=== PATIENT | female | born 1950 | race Caucasian/White ===

== ENCOUNTER 2016-10-17 12:12 | Emergency (ER) | payer OTHER ==
[~2016-10-17] VITALS: Ht 172.7 cm; Wt 77.1 kg
--- NOTE | ~2016-10-17 | EKG ---
[address] [place] [address] ELECTROCARDIOGRAM REPORT Name: ÁNGELJERI Room #: [facility] Kortney#: [id number] Admission: 10/17/16 Attend Phys: Discharge: 10/17/16 Date of : 50 Report #: [id number] THIS REPORT FOR: //name// [facility] ED Test Date: 2016-10-17 Test Time: 12:26:41 Pat Name: JERI NEAL Department: Room: Gender: F Post Anesthesia Care Unit Nurse: Florinda HENDRICKS : 1950 Requested By: Aurelio Mason Order Number: [id number] MD: Jono Bosch Measurements Intervals [place] Rate: 57 P: 24 [place]: 170 QRS: 12 QRSD: 81 T: 13 QT: 443 QTc: 432 Interpretive Statements Sinus rhythm Borderline low voltage, extremity leads Anteroseptal infarct, old No previous ECG available for comparison Electronically Signed On 10-18-2016 8:47:41 CDT by Jono Bosch [email or web address] <ELECTRONICALLY SIGNED> By: Jono Bosch MD, [facility] 10/18/16 0847 1226 1226 Jono Bosch MD, FACC /EPI
[2016-10-17] MEDS ORDERED: WELLBUTRIN 75 M75 M1 PO (12:14)
[2016-10-17] MEDS ORDERED: ZOLOFT25 MG PO (12:14)
[2016-10-17 13:11] LABS: ABSOLUTE NEUTROPHILS 6.7 thou/uL (1.4-8.2); BASOPHILS 1.1 % (0.0-2.0); EOSINOPHILS 1.4 % (0.0-3.0); HEMATOCRIT 44.1 % (37.0-47.0); HEMOGLOBIN 15.1 gm/dL (12.0-15.0); LYMPHOCYTES 15.3 % (24.0-44.0); MCH 29.8 pg (26.0-34.0); MCHC 34.2 g/dL (28.0-37.0); MCV 87.3 fL (80.0-100.0); PLATELET COUNT 272 thou/uL (150-400); POLYS 77.2 % (36.0-66.0); RBC 5.05 mil/uL (4.20-5.00); RDW 13.4 % (10.5-14.5); WBC 8.6 thou/uL (4.0-11.0)
[2016-10-17 13:12] LABS: MANUAL DIFF NO
[2016-10-17 13:22] LABS: ANION GAP 12 mmol/L (7-16); BUN 9 mg/dL (7-18); CALCIUM 8.9 mg/dL (8.5-10.1); CHLORIDE 106 mmol/L (98-107); CO2 24 mmol/L (21-32); CREATININE 0.9 mg/dL (0.6-1.0); GLUCOSE 169 mg/dL (74-106); POTASSIUM 3.5 mmol/L (3.5-5.1); SODIUM 142 mmol/L (136-145)
[2016-10-17 13:26] LABS: APTT 22.4 Seconds (24.5-32.8); PROTIME 10.3 Seconds (9.3-11.4)
[2016-10-17 13:41] LABS: ALBUMIN 3.6 g/dL (3.4-5.0); ALKALINE PHOSPHATASE 115 U/L (46-116); CK-MB MASS < 0.5 ng/mL (<0.5-3.6); MAGNESIUM 1.7 mg/dL (1.8-2.4); NT-PRO BRAIN NAT PEPTIDE 136 pg/mL (<300); SGOT 11 U/L (15-37); SGPT 16 U/L (30-65); TOTAL BILIRUBIN 0.5 mg/dL (<0.1-1.0); TOTAL PROTEIN 7.4 g/dL (6.4-8.2); TROPONIN-I < 0.04 ng/mL (<0.04-0.07)
[2016-10-17 13:45] VITALS: BP 156/74
[2016-10-17 13:51] LABS: URINE BILIRUBIN NEGATIVE (Negative); URINE BLOOD NEGATIVE (Negative); URINE COLOR YELLOW; URINE GLUCOSE-RANDOM* NEGATIVE (Negative); URINE KETONES NEGATIVE (Negative); URINE LEUKOCYTES-REFLEX NEGATIVE (Negative); URINE PROTEIN (DIPSTICK) NEGATIVE (Negative); URINE UROBILINOGEN 0.2 E.U./dl (0.2-1.0)
[2016-10-17] MEDS ORDERED: ATIVAN0.5 MG PO (13:58)
[2016-10-17] MEDS ORDERED: ZOFRAN ODT4 MG DISSOLVE (13:58)
[2016-10-17 14:16] LABS: AMP/METHAMP Negative (Negative); BARBITURATES Negative (Negative); BENZODIAZEPINES Negative (Negative); COCAINE Negative (Negative); METHADONE Negative (Negative); OPIATES Negative (Negative); PCP Negative (Negative); THC POSITIVE (Negative)
== END 2016-10-17 14:48 | disposition home or self-care (01) ==
LOC: ER 12:12
PROVIDERS: Emergency Medicine
DX: F41.0 Panic disorder [episodic paroxysmal anxiety] (principal); J98.11 Atelectasis; R07.89 Other chest pain; F17.210 Nicotine dependence, cigarettes, uncomplicated; F12.10 Cannabis abuse, uncomplicated; Z88.5 Allergy status to narcotic agent